=== PATIENT | female | born 1990 | race Caucasian/White ===

== ENCOUNTER 2024-01-15 20:38 | Emergency (ER) | payer OTHER ==
[~2024-01-15] VITALS: Ht 165.1 cm; Wt 97.5 kg
[2024-01-15] MEDS ORDERED: IBUP-2077 PO (21:24)
[2024-01-15] MEDS: KETOROLAC 60 MG VIAL (30MG/ML) IM ONE (21:29)
[2024-01-15 21:31] VITALS: BP 142/48; PULSE 87; RESP 18; O2SAT 98
== END 2024-01-15 22:01 | disposition home or self-care (01) ==
LOC: EDH 20:38
DX: S90.121A Contusion of right lesser toe(s) without damage to nail, initial encounter (principal); X58.XXXA Exposure to other specified factors, initial encounter; Y93.89 Activity, other specified; Y92.89 Other specified places as the place of occurrence of the external cause; Y99.8 Other external cause status
CPT/HCPCS: 99283; 73630; 96372; J1885